=== PATIENT | female | born 1990 | race American Indian/Alaskan Native ===

== ENCOUNTER 2018-09-01 12:57 | Outpatient (CLI) | payer MEDICAID ==
[2018-09-01] MEDS ORDERED: LACTATED RINGERS 500 ML IV ONE (15:02)
[2018-09-01 15:26] VITALS: BP 121/72
[2018-09-01] MEDS ORDERED: LACTATED RINGERS 1,000 ML IV SCH (16:00)
[2018-09-01 16:01] LABS: Bilirubin,Urine NEG (Negative); Blood,Urine NEG (Negative); Color,Urine Yellow (Yellow); Mucus,Urine 1+ /HPF; Protein,Urine <15 mg/dL mg/dL (Negative)
[2018-09-01] MEDS ORDERED: BRETHINE SUB-Q ONE (17:21)
== END 2018-09-01 19:01 | disposition home or self-care (01) ==
LOC: TRG 12:57
PROVIDERS: ATTEND Obstetrics & Gynecology
DX: O47.03 False labor before 37 completed weeks of gestation, third trimester (principal); Z3A.35 35 weeks gestation of pregnancy
CPT/HCPCS: 59025; 81001; 96360; 96372; J3105; J7120

== ENCOUNTER 2018-09-22 10:44 | Outpatient (CLI) | payer MEDICAID ==
[2018-09-22 11:49] LABS: Color,Urine Yellow (Yellow)
[2018-09-22 11:50] LABS: Bilirubin,Urine NEG (Negative); Blood,Urine SM (Negative); Mucus,Urine FEW /HPF; Protein,Urine <15 mg/dL mg/dL (Negative); Urobilinogen,Urine < 2.0 mg/dL (<2.0)
[2018-09-22 11:51] LABS: Hematocrit 34.8 % (30.3-42.9); Hemoglobin 11.5 gm/dl (10.1-14.3); Mean Corpuscular HGB Conc 33 % (30-34); Mean Corpuscular Volume 85 fl (79-97); Platelet Count 250 K/mm3 (140-440)
[2018-09-22 12:19] LABS: Alanine Aminotransferase 7 units/L (7-56); Uric Acid 4.8 mg/dL (3.5-7.6)
[2018-09-22 12:22] VITALS: BP 109/67
[2018-09-22] MEDS ORDERED: TYLENOL PO ONE (13:06)
== END 2018-09-22 12:39 | disposition home or self-care (01) ==
LOC: TRG 10:44
PROVIDERS: ATTEND Obstetrics & Gynecology
DX: O47.1 False labor at or after 37 completed weeks of gestation (principal); Z3A.38 38 weeks gestation of pregnancy
CPT/HCPCS: 36415; 59025; 81001; 82565; 83615; 84450; 84460; 84550; 85027

== ENCOUNTER 2018-10-04 11:32 | Outpatient (CLI) | payer MEDICAID ==
[2018-10-04 13:24] LABS: Hematocrit 33.1 % (30.3-42.9); Hemoglobin 10.8 gm/dl (10.1-14.3); Mean Corpuscular HGB Conc 33 % (30-34); Mean Corpuscular Volume 84 fl (79-97); Platelet Count 287 K/mm3 (140-440); Red Blood Count 3.95 M/mm3 (3.65-5.03); Red Cell Distribution Width 15.2 % (13.2-15.2)
[2018-10-04 13:26] LABS: Bacteria,Urine 2+ /HPF (Negative); Bilirubin,Urine NEG (Negative); Blood,Urine LG (Negative); Color,Urine Yellow (Yellow); Mucus,Urine FEW /HPF; Protein,Urine <15 mg/dL mg/dL (Negative); Urobilinogen,Urine < 2.0 mg/dL (<2.0)
[2018-10-04 13:46] LABS: Alanine Aminotransferase 7 units/L (7-56); Uric Acid 4.7 mg/dL (3.5-7.6)
[2018-10-04 14:07] VITALS: BP 121/76
== END 2018-10-04 14:16 | disposition home or self-care (01) ==
LOC: TRG 11:32
PROVIDERS: ATTEND Obstetrics & Gynecology
DX: O47.1 False labor at or after 37 completed weeks of gestation (principal); Z3A.39 39 weeks gestation of pregnancy
CPT/HCPCS: 36415; 59025; 81001; 82565; 83615; 84450; 84460; 84550; 85027

== ENCOUNTER 2018-10-06 13:49 | Inpatient (IN) | payer MEDICAID ==
[2018-10-06] MEDS ORDERED: SUBLIMAZE IV PRN (15:34)
[2018-10-06] MEDS ORDERED: ZOFRAN IV PRN (15:34)
[2018-10-06] MEDS ORDERED: BRETHINE IVP PRN (15:34)
[2018-10-06] MEDS ORDERED: MINERAL OIL PO PRN (15:34)
[2018-10-06] MEDS ORDERED: PHENERGAN PO PRN (15:34)
[2018-10-06] MEDS ORDERED: BRETHINE SUB-Q PRN (15:34)
[2018-10-06] MEDS ORDERED: NARCAN 0.4 MG/1 ML IV PRN (15:34)
[2018-10-06] MEDS ORDERED: PITOCin/NS 20 UNIT/1000ML DRIP 20 UNITS/1,000 ML BAG IV SCH (16:00)
[2018-10-06] MEDS ORDERED: LACTATED RINGERS 1,000 ML IV SCH (16:00)
[2018-10-06] MEDS ORDERED: PITOCin/NS 30 UNIT/500ML 30 UNITS/500 ML BAG IV SCH (16:30)
[2018-10-06] MEDS ORDERED: XYLOCAINE 2% INFILTRATI ONE (16:34)
[2018-10-06 16:44] LABS: Hematocrit 35.2 % (30.3-42.9); Hemoglobin 11.5 gm/dl (10.1-14.3); Mean Corpuscular HGB Conc 33 % (30-34); Mean Corpuscular Volume 84 fl (79-97); Platelet Count 290 K/mm3 (140-440)
[2018-10-06] MEDS: PITOCin/NS 30 UNIT/500ML 30 UNITS/500 ML BAG IV SCH (16:44)
[2018-10-06 18:36] LABS: Alanine Aminotransferase 7 units/L (7-56); Albumin 3.6 g/dL (3.9-5); BUN/Creatinine Ratio 18; Blood Urea Nitrogen 7 mg/dL (7-17); Calcium 8.7 mg/dL (8.4-10.2); Hemolysis Index 4
[2018-10-06 19:03] LABS: Bacteria,Urine 2+ /HPF (Negative); Bilirubin,Urine NEG (Negative); Blood,Urine LG (Negative); Color,Urine Amber (Yellow); Mucus,Urine FEW /HPF; Urobilinogen,Urine < 2.0 mg/dL (<2.0)
[2018-10-06 19:05] LABS: WBC,Urine > 182.0 /HPF (0.0-6.0)
[2018-10-06] MEDS: STADOL IV PRN ×2 (19:29→22:00)
--- NOTE | 2018-10-06 21:02 | History and Physical Report ---
History of Present Illness Date of examination: 10/06/18 Date of admission: 10/06/18 14:29 Chief complaint: 28 year old at 40 weeks, 1 day gestation with PIH. History of present illness: 28 year old at 40 weeks, 1 day gestation sent from office for augmentation of labor due to PIH. Patient denies headache, visual disturbance, nausea or vomiting, abdominal or epigastric pain. She reports swelling. Patient denies vaginal bleeding. She denies leaking of fluid. Patient reports active movement. Patient has received care at [facility]. LMP 12/29/2017. EDC 10/05/2018. EGA 40 weeks, 1 day gestation. significant for the following: UTI (treated and cured); HSV 2 positive (suppressed with Valtrex; patient denies lesions or prodromal symptoms); anemia (supplemented with iron); palpitations during (cardiology appointment made but pt. did not keep appointment); elevated blood pressures past week of (preeclamptic labs negative). labs are as follows: B+, antibody screen negative, rubella immune, pap negative, RPR nonreactive, hepatitis B surface antigen negative, HIV negative, varicella immune, hemoglobin electrophoresis AA, GC negative, CT negative, diabetes screen 84, GBS negative. Past History Past Medical History: other (palpitations during (pt. 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 denies: abnormal PAP smear, chlamydia, gonorrhea, hepatitis B, hepatitis C, HIV, syphilis, trichomonas Family/Genetic History: none Social history: lives with family, full code. denies: smoking, alcohol abuse, prescription drug abuse, IV drug use - Obstetrical History Expected Date of Delivery: 10/05/18 Actual Gestation: 40 Week(s) 1 Day(s) : 1 Para: 0 Hx # Term Pregnancies: 1 Number of Pregnancies: 0 Spontaneous Abortions: 0 Induced : 0 Number of Living Children: 0 Medications and Allergies Allergies Allergy/AdvReac Type Severity Reaction Status Date / Time No Known Allergies Allergy Verified 09/22/18 10:47 Home Medications Medication Instructions Recorded Confirmed Last Taken Type valACYclovir [Valtrex] 10/06/18 10/05/18 History valACYclovir [Valtrex] 10/06/18 10/05/18 22:30 History 1 valACYclovir [Valtrex] 10/06/18 10/05/18 22:30 History 500mg Active Meds: Active Medications Butorphanol Tartrate (Stadol) 2 mg IV Q2H PRN PRN Reason: Pain , Severe (7-10) Last Admin: 10/06/18 19:29 Dose: 2 mg Documented by: Ephedrine Sulfate (Ephedrine Sulfate) 10 mg IV Q2M PRN PRN Reason: Hypotension Fentanyl (Sublimaze) 100 mcg IV Q2H PRN PRN Reason: Labor Pain Lactated Ringer's (Lactated Ringers) 1,000 mls @ 125 mls/hr IV DIRECT ABDOULAYE Last Admin: 10/06/18 16:44 Dose: 125 mls/hr Documented by: Oxytocin/Sodium Chloride (Pitocin/Ns 20 Unit/1000ml Drip) 20 units in 1,000 mls @ 125 mls/hr IV DIRECT ABDOULAYE Oxytocin/Sodium Chloride (Pitocin/Ns 30 Unit/500ml) 30 units in 500 mls @ 4 mls/hr IV TITR ABDOULAYE; Protocol Last Titration: 10/06/18 19:54 Dose: 0 milliunits/min, 0 mls/hr Documented by: Oxytocin/Sodium Chloride (Pitocin/Ns 30 Unit/500ml) 30 units in 500 mls @ 4 mls/hr IV TITR ABDOULAYE; Protocol Ampicillin Sodium (Polycillin/Ns 2 Gm/100 Ml) 2 gm in 100 mls @ 100 mls/hr IV Q6H ABDOULAYE; Protocol Gentamicin Sulfate 121.1085 mg (/ Sodium Chloride) 103.0277 mls @ 200 mls/hr IV Q8HR ABDOULAYE; Protocol Mineral Oil (Mineral Oil) 30 ml PO QHS PRN PRN Reason: Constipation Naloxone HCl (Narcan 0.4 Mg/1 Ml) 0.1 mg IV Q2MIN PRN PRN Reason: Res Rate </= 8 or 02 SAT < 92% Ondansetron HCl (Zofran) 4 mg IV Q8H PRN PRN Reason: Nausea And Vomiting Promethazine HCl (Phenergan) 25 mg PO Q6H PRN PRN Reason: Nausea And Vomiting Terbutaline Sulfate (Brethine) 0.25 mg SUB-Q ONCE PRN PRN Reason: Hyperstimulation/Hypertonicity Terbutaline Sulfate (Brethine) 0.25 mg IVP ONCE PRN PRN Reason: Hyperstimulation/Hypertonicity Valacyclovir HCl (Valtrex) 500 mg PO BID ABDOULAYE Review of Systems All systems: negative (contractions) - Vital Signs Vital signs: Vital Signs Temp Resp 97.8 F 20 10/06/18 15:00 10/06/18 15:00 Temp Pulse Resp BP Pulse Ox 98.9 F 96 H 18 129/77 99 10/06/18 19:21 10/06/18 20:46 10/06/18 18:00 10/06/18 20:46 10/06/18 17:04 - Physical Exam Abdomen: Positive: normal appearance, soft. Negative: distention, tenderness, guarding, rigidity Genitourinary (Female): Positive: normal external genitalia, normal perenium. Negative: perineal/vulvar lesions (no lesions seen on careful exam with bright light upon admission) Vagina: Positive: normal moisture Uterus: Positive: enlarged (size=dates) Anus/Rectum: Positive: normal perianal skin Extremities: Positive: normal, edema (mild edema hands and feet bilaterally). Negative: tenderness - Obstetrical FHR: category 1 Uterine Contraction Monitor Mode: External Cervical Dilatation: 5 Cervical Effacement Percentage: 75 station: -2 Uterine Contraction Pattern: Regular Uterine Contraction Intensity: Moderate Results Result Diagrams: 10/06/18 16:05 10/06/18 16:05 Abnormal lab results 10/06/18 10/06/18 10/06/18 Range/Units 16:05 16:05 18:26 WBC 15.3 H (4.5-11.0) K/mm3 Sodium 135 L (137-145) mmol/L Carbon Dioxide 18 L (22-30) mmol/L Creatinine 0.4 L (0.7-1.2) mg/dL Alkaline Phosphatase 145 H (35-129) units/L Albumin 3.6 L (3.9-5) g/dL Urine WBC (Auto) > 182.0 H (0.0-6.0) /HPF U Epithel Cells (Auto) 17.0 H (0-13.0) /HPF All other labs normal. Assessment and Plan A: at 40 weeks, 1 day gestation. PIH. GBS negative. P: Admit. Continuous EFM. Pitocin augmentation of labor. Discussed with patient risks and benefits of Pitocin augmentation of labor. Patient consented to Pitocin augmentation of labor. IV antibiotics.
[2018-10-06] MEDS: AMPICILLIN/NS 2 GM/100 ML 2 GM/100 ML BAG IV SCH (21:30)
[2018-10-06] MEDS ORDERED: GENTAMICIN IV SCH (22:00)
[2018-10-06] MEDS ORDERED: NACL 0.9% IV SCH (22:00)
[2018-10-06] MEDS: GENTAMICIN/NS 100 MG/100 ML 100 MG/100 ML BAG IV SCH (22:01)
[2018-10-06] MEDS: VALTREX PO SCH (22:01)
[2018-10-07] MEDS: STADOL IV PRN (03:30)
[2018-10-07] MEDS: AMPICILLIN/NS 2 GM/100 ML 2 GM/100 ML BAG IV SCH ×2 (04:09→12:30)
[2018-10-07] MEDS ORDERED: NARCAN 2 MG/2 ML IV PRN (05:24)
--- NOTE | 2018-10-07 05:25 | Anesthesia Consultation ---
Anesthesia Consult and Med Hx - Airway Anesthetic Teeth Evaluation: Good ROM Head & Neck: Adequate Mental/Hyoid Distance: Adequate Mallampati Class: Class I Intubation Access Assessment: Good - Pulmonary Exam CTA: Yes - Cardiac Exam Cardiac Exam: RRR - Pre-Operative Health Status ASA Pre-Surgery Classification: ASA2 Proposed Anesthetic Plan: Epidural - Pulmonary Hx Asthma: No COPD: No Hx Pneumonia: No - Cardiovascular System Hx Hypertension: Yes - Central Nervous System Hx Seizures: No Hx Psychiatric Problems: No - Endocrine Hx Renal Disease: No Hx End Stage Renal Disease: No Hx Hypothyroidism: No Hx Hyperthyroidism: No - Hematic Hx Anemia: Yes (stopped taking iron about 1 month ago) Hx Sickle Cell Disease: No - Other Systems Hx Alcohol Use: No
--- NOTE | 2018-10-07 05:26 | Anesthesia Day of Surgery ---
Anesthesia Day of Surgery - Day of Surgery Patient is NPO: Yes Beta Blockers: No Cardiac Clearance: No Pulmonary Clearance: No Dvaid's Test: N/A
[2018-10-07] MEDS ORDERED: LIDOCAINE 1.5%/EPI 1:200,000 INFILTRATI ONE (05:33)
[2018-10-07] MEDS ORDERED: MARCAINE 0.25% INFILTRATI ONE (05:33)
[2018-10-07] MEDS ORDERED: fentaNYL-BUPIV 2 MCG/ML-0.125% 200 MCG/100 ML BAG EPIDURAL SCH (06:00)
[2018-10-07] MEDS: GENTAMICIN/NS 100 MG/100 ML 100 MG/100 ML BAG IV SCH (06:05)
--- NOTE | 2018-10-07 10:06 | Event Note ---
Date: 10/07/18 SVE /-3. Patient positioned in squatting position. Pitocin restarted. Patient is comfortable. Category 1 heart rate tracing.
[2018-10-07] MEDS: VALTREX PO SCH (11:25)
[2018-10-07] MEDS: PITOCin/NS 30 UNIT/500ML 30 UNITS/500 ML BAG IV SCH (12:17)
--- NOTE | 2018-10-07 13:05 | Event Note ---
Date: 10/07/18 Category 1 heart rate tracing. BPs mildly elevated. Minimal cervical change. Patient is receiving antibiotics. Consulted with Dr. Weaver re: patient: lack of cervical change, ROM, antibiotics, and increasing BP. Dr. Weaver states she will examine patient and discuss mode of delivery with patient.
--- NOTE | 2018-10-07 13:27 | Progress Note ---
Assessment and Plan - Patient Problems (1) 40 weeks gestation of Current Visit: Yes Status: Acute (2) Active labor Current Visit: Yes Status: Acute (3) Failure to progress in labor Current Visit: Yes Status: Acute Plan to address problem: I discussed the above findings with the patient. I told her that she needs to be delivered via C/section. Risks and benefits of the procedure were discussed in detail with her such as infection, hemorrhage requiring blood transfusion, injury to the bowel, bladder and blood vessels. She expressed understanding, her questions were answered, she gave her informed consent. Anesthesia has been notified. Keep NPO. Continue monitoring. Subjective - Subjective Date of service: 10/07/18 Principal diagnosis: SIUP at 40 weeks and 1 day in active labor, failure to dilate and descend. Interval history: Patient is a 28 year old , at 40 weeks and 1 day gestation who was admitted last night at 3 cm for labor augmentation. She progressed to 5 cm during the night and 6 cm at 6 AM (as per division head's exam). She has been on pitocin. I was asked to evaluate the patient for failure to dilate and descend. I found her lying in bed comfortably. She has an epidural in place. Her contractions have been Q3-4 minutes. Cervix: 6cm/90%/-3. tracing is CAT1. Objective - Vital Signs Vital Signs: Vital Signs - 12hr 10/07/18 10/07/18 10/07/18 01:27 01:32 01:37 Temperature Pulse Rate 117 H 116 H 109 H Blood Pressure O2 Sat by Pulse 96 97 96 Oximetry 10/07/18 10/07/18 10/07/18 01:42 01:47 01:52 Temperature Pulse Rate 107 H 117 H 107 H Blood Pressure 121/63 O2 Sat by Pulse 96 96 96 Oximetry 10/07/18 10/07/18 10/07/18 01:53 01:57 02:02 Temperature Pulse Rate 120 H 121 H 116 H Blood Pressure O2 Sat by Pulse 94 95 96 Oximetry 10/07/18 10/07/18 10/07/18 02:07 02:12 02:16 Temperature Pulse Rate 110 H 122 H 111 H Blood Pressure 110/65 O2 Sat by Pulse 97 96 Oximetry 10/07/18 10/07/18 10/07/18 02:17 02:22 02:27 Temperature Pulse Rate 114 H 116 H 113 H Blood Pressure O2 Sat by Pulse 94 97 96 Oximetry 10/07/18 10/07/18 10/07/18 02:28 02:32 02:37 Temperature 98.3 F Pulse Rate 96 H 112 H Blood Pressure O2 Sat by Pulse 96 96 Oximetry 10/07/18 10/07/18 10/07/18 02:42 02:46 02:47 Temperature Pulse Rate 132 H 99 H 99 H Blood Pressure 123/65 O2 Sat by Pulse 98 98 Oximetry 10/07/18 10/07/18 10/07/18 02:52 02:57 03:02 Temperature Pulse Rate 106 H 103 H 92 H Blood Pressure O2 Sat by Pulse 97 97 97 Oximetry 10/07/18 10/07/18 10/07/18 03:07 03:12 03:17 Temperature Pulse Rate 107 H 120 H 110 H Blood Pressure 134/75 O2 Sat by Pulse 97 98 97 Oximetry 10/07/18 10/07/18 10/07/18 03:22 03:27 03:28 Temperature Pulse Rate 103 H 106 H 111 H Blood Pressure O2 Sat by Pulse 97 94 94 Oximetry 10/07/18 10/07/18 10/07/18 03:32 03:34 03:37 Temperature Pulse Rate 107 H 97 H 112 H Blood Pressure O2 Sat by Pulse 98 94 97 Oximetry 10/07/18 10/07/18 10/07/18 03:40 03:42 03:46 Temperature Pulse Rate 97 H 121 H 96 H Blood Pressure 121/77 O2 Sat by Pulse 93 99 94 Oximetry 10/07/18 10/07/18 10/07/18 03:47 03:52 03:57 Temperature Pulse Rate 117 H 112 H 107 H Blood Pressure O2 Sat by Pulse 98 98 98 Oximetry 10/07/18 10/07/18 10/07/18 04:02 04:07 04:09 Temperature Pulse Rate 104 H 97 H 80 Blood Pressure O2 Sat by Pulse 99 99 93 Oximetry 10/07/18 10/07/18 10/07/18 04:12 04:17 04:22 Temperature Pulse Rate 96 H 91 H 87 Blood Pressure 130/84 O2 Sat by Pulse 99 94 98 Oximetry 10/07/18 10/07/18 10/07/18 04:27 04:32 04:37 Temperature Pulse Rate 91 H 99 H 111 H Blood Pressure O2 Sat by Pulse 97 99 99 Oximetry 10/07/18 10/07/18 10/07/18 04:42 04:47 04:52 Temperature Pulse Rate 92 H 102 H 88 Blood Pressure 137/75 O2 Sat by Pulse 97 96 97 Oximetry 10/07/18 10/07/18 10/07/18 04:57 05:02 05:07 Temperature Pulse Rate 101 H 93 H 96 H Blood Pressure O2 Sat by Pulse 97 97 97 Oximetry 10/07/18 10/07/18 10/07/18 05:12 05:16 05:17 Temperature Pulse Rate 89 107 H 117 H Blood Pressure 162/89 O2 Sat by Pulse 97 99 Oximetry 10/07/18 10/07/18 10/07/18 05:22 05:27 05:31 Temperature Pulse Rate 87 86 118 H Blood Pressure O2 Sat by Pulse 98 97 94 Oximetry 10/07/18 10/07/18 10/07/18 05:32 05:34 05:37 Temperature Pulse Rate 141 H 117 H 107 H Blood Pressure 140/82 O2 Sat by Pulse 97 98 Oximetry 10/07/18 10/07/18 10/07/18 05:42 05:44 05:47 Temperature Pulse Rate 99 H 102 H 91 H Blood Pressure 133/79 128/81 O2 Sat by Pulse 99 99 Oximetry 10/07/18 10/07/18 10/07/18 05:52 05:57 06:13 Temperature Pulse Rate 104 H 117 H 105 H Blood Pressure 96/51 O2 Sat by Pulse 99 99 Oximetry 10/07/18 10/07/18 10/07/18 06:27 06:38 06:43 Temperature Pulse Rate 89 100 H 88 Blood Pressure 98/55 106/58 123/74 O2 Sat by Pulse Oximetry 10/07/18 10/07/18 10/07/18 06:57 07:14 07:28 Temperature Pulse Rate 91 H 84 96 H Blood Pressure 112/60 110/56 127/59 O2 Sat by Pulse Oximetry 10/07/18 10/07/18 10/07/18 07:43 07:58 08:12 Temperature Pulse Rate 87 94 H 93 H Blood Pressure 115/68 140/82 142/86 O2 Sat by Pulse Oximetry 10/07/18 10/07/18 10/07/18 08:28 08:43 08:58 Temperature Pulse Rate 91 H 96 H 86 Blood Pressure 138/70 149/83 140/73 O2 Sat by Pulse Oximetry 10/07/18 10/07/18 10/07/18 09:13 09:28 09:42 Temperature Pulse Rate 88 92 H 85 Blood Pressure 132/76 143/84 128/70 O2 Sat by Pulse Oximetry 10/07/18 10/07/18 10/07/18 09:58 10:13 10:28 Temperature Pulse Rate 98 H 95 H 86 Blood Pressure 139/88 131/82 125/80 O2 Sat by Pulse Oximetry 10/07/18 10/07/18 10/07/18 10:44 10:58 11:13 Temperature Pulse Rate 83 89 103 H Blood Pressure 130/79 128/81 128/83 O2 Sat by Pulse Oximetry 10/07/18 10/07/18 10/07/18 11:27 11:44 11:58 Temperature Pulse Rate 102 H 101 H 80 Blood Pressure 127/81 120/72 117/76 O2 Sat by Pulse Oximetry 10/07/18 10/07/18 10/07/18 12:12 12:29 12:42 Temperature Pulse Rate 82 93 H 92 H Blood Pressure 123/78 134/86 140/94 O2 Sat by Pulse Oximetry 10/07/18 10/07/18 12:57 13:12 Temperature Pulse Rate 81 78 Blood Pressure 129/85 125/78 O2 Sat by Pulse Oximetry - Exam Cardiovascular: Normal S1, Normal S2 Lungs: Clear to auscultation Vulva: both: normal FHR: category 1 Uterine Contraction Monitor Mode: External Cervical Dilatation: 6 Cervical Effacement Percentage: 90 station: -3 Uterine Contraction Pattern: Irregular Uterine Contraction Intensity: Moderate Deep Tendon Reflex Grade: Normal +2 - Labs Labs: Abnormal Labs 10/06/18 10/06/18 10/06/18 16:05 16:05 18:26 WBC 15.3 H Sodium 135 L Carbon Dioxide 18 L Creatinine 0.4 L Alkaline Phosphatase 145 H Albumin 3.6 L Urine WBC (Auto) > 182.0 H U Epithel Cells (Auto) 17.0 H Laboratory Results - last 24 hr 10/06/18 10/06/18 10/06/18 16:05 16:05 16:05 WBC 15.3 H RBC 4.20 Hgb 11.5 Hct 35.2 MCV 84 MCH 28 MCHC 33 RDW 15.0 Plt Count 290 Sodium Potassium Chloride Carbon Dioxide Anion Gap BUN Creatinine Estimated GFR BUN/Creatinine Ratio Glucose Uric Acid Calcium Total Bilirubin AST ALT Alkaline Phosphatase Lactate Dehydrogenase Total Protein Albumin Albumin/Globulin Ratio Urine Color Urine Turbidity Urine pH Ur Specific [place] Urine Protein Urine Glucose (UA) Urine Ketones Urine Blood Urine Nitrite Urine Bilirubin Urine Urobilinogen Ur Leukocyte Esterase Urine WBC (Auto) Urine RBC (Auto) U Epithel Cells (Auto) Urine Bacteria (Auto) Urine WBC Clumps Urine Mucus Urine Yeast (Budding) RPR Nonreactive Blood Type B POSITIVE Antibody Screen Negative 10/06/18 10/06/18 16:05 18:26 WBC RBC Hgb Hct MCV MCH MCHC RDW Plt Count Sodium 135 L Potassium 4.1 Chloride 100.3 Carbon Dioxide 18 L Anion Gap 21 BUN 7 Creatinine 0.4 L Estimated GFR > 60 BUN/Creatinine Ratio 18 Glucose 67 Uric Acid 5.0 Calcium 8.7 Total Bilirubin 0.30 AST 11 ALT 7 Alkaline Phosphatase 145 H Lactate Dehydrogenase 169 Total Protein 6.4 Albumin 3.6 L Albumin/Globulin Ratio 1.3 Urine Color Pat Urine Turbidity Cloudy Urine pH 6.0 Ur Specific [place] 1.020 Urine Protein 30 mg/dl Urine Glucose (UA) Neg Urine Ketones 20 Urine Blood Lg Urine Nitrite Neg Urine Bilirubin Neg Urine Urobilinogen < 2.0 Ur Leukocyte Esterase Lg Urine WBC (Auto) > 182.0 H Urine RBC (Auto) 36.0 U Epithel Cells (Auto) 17.0 H Urine Bacteria (Auto) 2+ Urine WBC Clumps 3+ Urine Mucus Few Urine Yeast (Budding) 2+ RPR Blood Type Antibody Screen - Results US- obstetric: report reviewed
[2018-10-07] MEDS ORDERED: REGLAN IV SCH (15:21)
[2018-10-07] MEDS ORDERED: BICITRA PO SCH (15:21)
[2018-10-07] MEDS ORDERED: PEPCID IV SCH (15:21)
[2018-10-07] MEDS ORDERED: XYLOCAINE 2%/ EPI 1:200,000 INFILTRATI ONE (15:38)
[2018-10-07] MEDS ORDERED: LACTATED RINGERS 1,000 ML IV SCH (16:00)
[2018-10-07] MEDS ORDERED: ANCEF/STERILE WATER 2 GM/20 ML 2 GM/20 ML SYRINGE IV NR (16:00)
[2018-10-07] MEDS ORDERED: PITOCin/NS 20 UNIT/1000ML DRIP 20 UNITS/1,000 ML BAG IV SCH ×2 (16:00→20:00)
[2018-10-07] MEDS ORDERED: ZOFRAN ONE (18:22)
[2018-10-07] MEDS ORDERED: ASTRAMORPH PF 10MG/10ML ONE (18:47)
[2018-10-07] MEDS ORDERED: VERSED ONE (18:47)
[2018-10-07] MEDS ORDERED: TORADOL ONE (18:54)
[2018-10-07] MEDS ORDERED: DILAUDID ONE ×2 (18:57→19:13)
[2018-10-07] MEDS ORDERED: LACTATED RINGERS 1,000 ML ONE (18:58)
[2018-10-07] MEDS ORDERED: ANUCORT-HC PR PRN (19:30)
[2018-10-07] MEDS ORDERED: TYLENOL PO PRN (19:30)
[2018-10-07] MEDS ORDERED: SENOKOT PO PRN (19:30)
[2018-10-07] MEDS ORDERED: PERCOCET 5/325 PO PRN (19:30)
[2018-10-07] MEDS ORDERED: MORPHINE IV PRN ×2 (19:30)
[2018-10-07] MEDS ORDERED: ZOFRAN IV PRN (19:30)
[2018-10-07] MEDS ORDERED: LANSINOH TP PRN (19:30)
[2018-10-07] MEDS ORDERED: MYLICON PO PRN (19:30)
[2018-10-07] MEDS ORDERED: TUCKS PAD TP PRN (19:30)
[2018-10-07] MEDS ORDERED: MILK OF MAGNESIA PO PRN (19:30)
[2018-10-07] MEDS ORDERED: TORADOL IV PRN ×2 (19:30)
[2018-10-07] MEDS ORDERED: NARCAN 0.4 MG/1 ML IV PRN (19:30)
--- NOTE | 2018-10-07 19:30 | Operative Report ---
Operative Report Operative Report: Preoperative diagnosis 1. SIUP at 40 weeks and 1 day gestation in active labor. 2. Failure to dilate and descend. Postoperative diagnosis: Same. Procedure: Primary low-transverse section. Surgeon: Dr. Weaver Parks Recreation Director: none Anesthesia: epidural. IVF: RL 2 liters EBL: 650 cc Urine: 500 cc clear Complications: none. Intraoperative findings: 1. A female infant found in an MARLEE position, delivered at 6:40 PM, Apgars 8 at 1 minute and 9 at 5 minutes, weight as per test equipment mechanic. 2. Normal fallopian tubes and ovaries bilaterally. Procedure details: Risks, benefits, and alternatives of the procedure were discussed in detail with the patient which included but not limited to the risk of infection, hemorrhage requiring blood transfusion, injury to the bowel or bladder and blood vessels. The patient expressed understanding, her questions were answered, and she gave informed consent. The patient was taken to the operating room with an IV fluid infusing Ringers lactate. In the operating room, she was placed in a dorsal supine position with a leftward tilt. She was loaded with epidural anesthesia. Ortiz catheter in Venodyne boots were placed. The abdomen was washed and she was prepared and draped in usual sterile fashion. After confirming adequate epidural anesthesia, the Pfannenstiel skin incision was made in the lower abdomen about 2 cm above the pubic symphysis using the scalpel. This incision was carried down to the underlying fascia using the Bovie. The fascia was opened bilaterally in a curvilinear fashion using the Bovie. 2 straight Kocker clamps were used to grasp the upper edge of the fascia from which the underlying rectus abdominis muscles was dissected off using the Bovie. A similar procedure was done with the lower edge of the fascia to dissect the underlying rectus abdominis muscle. The muscle was bluntly from the midline by pulling. The parietal peritoneum was grasped with 2 hemostat clamps and entered sharply using Metzenbaum scissors. A quick survey of the anatomy revealed a gravid uterus, normal fallopian tubes and ovaries bilaterally. A bladder flap was created. Patrice'O retractor was placed in the incision for proper visualization. A low transverse incision was made in the lower uterine segment using the scalpel and extended bilaterally in a curvilinear fashion using bandage scissors. There was scant amount of clear amniotic fluid as the membranes have been ruptured during the labor. The infant was found in an MARLEE position, the head was delivered atraumatically followed by the delivery of the shoulders and the rest of the body at 7:34 AM. The cord was clamped 2 and cut and the was handed off to the waiting test equipment mechanic. The infant was a female, Apgars were 9 at 1 minute and 9 at 5 minutes, weight as per test equipment mechanic. Cord blood was collected. The placenta was delivered manually and it was complete with a three-vessel cord. The uterine cavity was cleaned of clots and debris using dry lap sponges. The uterine incision was repaired in a running locked fashion using 0 Vicryl sutures. A second layer of imbrication was placed. The gutters were cleaned of clots and debris using dry lap sponges. After confirming adequate hemostasis, the instruments were removed from the abdominal cavity. The rectus muscle was reapproximated in an interrupted fashion using 0 Vicryl sutures. The fascia was closed in a running fashion using 0 Vicryl sutures. The skin was closed in a subcutaneous fashion using 4 Vicryl on a Alessio needle. Sterile dressing was placed. The counts of laps, needles, sponges, and instruments were correct 2. The patient tolerated the procedure well, she was taken to the recovery room in a stable condition.
[2018-10-07] MEDS ORDERED: SODIUM CHLORIDE FLUSH SYRINGE 10 ML IV NR (20:00)
[2018-10-08] MEDS ORDERED: D5LR 1,000 ML IV SCH (01:00)
[2018-10-08] MEDS: VALTREX PO SCH ×2 (04:37→21:53)
[2018-10-08 08:14] LABS: Hematocrit 28.5 % (30.3-42.9); Hemoglobin 9.2 gm/dl (10.1-14.3)
[2018-10-08] MEDS: GENTAMICIN/NS 100 MG/100 ML 100 MG/100 ML BAG IV SCH ×2 (10:24→18:08)
[2018-10-08] MEDS: PRENATAL VITAMIN PO SCH (10:24)
[2018-10-08] MEDS: FEOSOL PO SCH (10:24)
--- NOTE | 2018-10-08 12:40 | Progress Note ---
Assessment and Plan A: day 1 S/P primary low transverse section. Anemia. P: Supplement with iron. Encouraged ambulation. Subjective - Subjective Date of service: 10/08/18 Principal diagnosis: /postop day 1 S/P primary LTCS Interval history: /postop day 1 S/P primary LTCS. Doing well. Patient reports small amount of lochia. Ortiz catheter has been removed and she is voiding without difficulty. Ambulating well. Tolerating liquid diet without nausea or vomiting. Patient has not passed gas yet. Patient reports: appetite normal, voiding normally, pain well controlled, ambu lating normally, no dizzy ambulation, no flatus, no bowel movement, no nauseated : doing well Objective - Vital Signs Latest vital signs: Vital Signs Temp Pulse Resp BP BP Pulse Ox 10/08/18 08:00 100 H 10/08/18 07:39 99.1 F 116 H 20 136/80 94 10/08/18 04:43 20 10/08/18 04:00 98.4 F 63 18 101/78 10/08/18 00:30 98.7 F 74 18 130/74 10/07/18 21:54 20 10/07/18 21:15 99.2 F 90 18 150/83 10/07/18 20:40 99.2 F 94 H 16 141/782 98 10/07/18 20:30 98 H 14 140/80 98 10/07/18 20:15 103 H 12 140/88 98 10/07/18 20:00 102 H 18 137/86 98 10/07/18 19:55 94 H 16 133/80 98 10/07/18 19:50 94 H 16 137/81 98 10/07/18 19:45 97 H 17 128/79 98 10/07/18 19:42 99.4 F 104 H 20 139/80 99 10/07/18 17:28 105 H 138/83 10/07/18 17:12 107 H 131/78 10/07/18 16:59 86 121/68 10/07/18 16:43 103 H 129/81 10/07/18 16:29 88 121/63 10/07/18 16:15 111 H 168/71 10/07/18 15:59 126 H 126/77 10/07/18 15:29 103 H 122/95 10/07/18 15:14 98 H 133/83 10/07/18 14:57 93 H 130/79 10/07/18 14:42 83 127/78 10/07/18 14:27 88 126/75 10/07/18 14:12 109 H 130/82 10/07/18 13:57 84 125/78 10/07/18 13:42 90 122/75 10/07/18 13:28 100 H 121/73 10/07/18 13:12 78 125/78 10/07/18 12:57 81 129/85 10/07/18 12:42 92 H 140/94 Intake and Output 10/07/18 10/08/18 10/08/18 23:59 07:59 15:59 Intake Total 250 360 Output Total 860 800 100 Balance -610 -800 260 Intake: IV 250 Oral 360 Output: Urine 860 800 100 Indwelling Catheter 800 100 Uretheral (Ortiz) 430 Other: Total, Intake Amount 360 Total, Output Amount 800 100 - Exam Cardiovascular: Present: Regular rate, Normal S1, Normal S2 Abdomen: Present: normal appearance, soft, normal bowel sounds. Absent: distention, tenderness, guarding, rigidity Uterus: Present: normal, firm, fundal height below umbilicus. Absent: bogginess, tenderness Extremities: Present: normal, edema (mild edema). Absent: tenderness Incision: Present: normal, dry, intact, dressed - Labs Labs: Abnormal lab results 10/08/18 Range/Units 07:19 Hgb 9.2 L (10.1-14.3) gm/dl Hct 28.5 L D (30.3-42.9) %
[2018-10-08] MEDS: IBUPROFEN PO PRN ×2 (13:17→22:02)
[2018-10-08] MEDS: AMPICILLIN/NS 2 GM/100 ML 2 GM/100 ML BAG IV SCH (18:44)
[2018-10-09] MEDS: PRENATAL VITAMIN PO SCH (09:50)
[2018-10-09] MEDS: FEOSOL PO SCH (09:50)
[2018-10-09] MEDS: VALTREX PO SCH (09:51)
[2018-10-09] MEDS: IBUPROFEN PO PRN (11:54)
--- NOTE | 2018-10-09 13:11 | Progress Note ---
Assessment and Plan - Patient Problems (1) S/P primary low transverse Current Visit: Yes Status: Acute Plan to address problem: POD 2 - stable Continue routine postop orders' Discharge to home later today Follow up at [facility] in 1 week for incision check (2) Anemia in puerperium, baby delivered during current episode of care Current Visit: Yes Status: Acute Plan to address problem: Asymptomatic Continue iron therapy (3) Chlamydia infection Current Visit: Yes Status: Acute Plan to address problem: Diagnosed at [facility] Will treat with Azithromycin 1g PO x1 Subjective - Subjective Date of service: 10/09/18 Principal diagnosis: POD #2; s/p Primary LTCS Patient reports: appetite normal, voiding normally, pain well controlled, flatus, bowel movement, ambulating normally, no dizzy ambulation Eads: doing well, other (breast and bottle feeding) Objective - Vital Signs Latest vital signs: Vital Signs Temp Pulse Resp BP BP Pulse Ox 10/09/18 07:43 98.3 F 91 H 18 128/87 10/09/18 00:00 98.4 F 105 H 20 129/80 97 10/08/18 16:26 98.6 F 96 H 20 124/81 99 Intake and Output 10/08/18 10/09/18 10/09/18 23:59 07:59 15:59 Intake Total 360 240 Balance 360 240 Intake: Oral 360 240 Other: Total, Intake Amount 360 240 - Exam Cardiovascular: Present: Regular rate Lungs: Present: Clear to auscultation Abdomen: Present: normal appearance, soft Vulva: both: normal Uterus: Present: normal, firm, fundal height below umbilicus Extremities: Present: normal Incision: Present: normal, dry, intact, other (steri strips in place)
--- NOTE | 2018-10-09 13:13 | Discharge Summary ---
Providers - Providers Date of Admission: 10/06/18 14:29 Date of discharge: 10/09/18 Attending physician: ERINN RILEY MD Primary care physician: PTA Hospitalization Reason for admission: induction of labor, IUP at term Delivery: Procedure: primary low transverse Episiotomy: none Laceration: none Incision: normal, dry, intact, other (steri strips in place) Other procedures: none complications: none Discharge diagnosis: IUP at term delivered baby: female Hospital course: Uncomplicated Condition at discharge: Stable Disposition: MT-01 TO HOME OR SELFCARE - Discharge Diagnoses (1) S/P primary low transverse Status: Acute (2) Anemia in puerperium, baby delivered during current episode of care Status: Acute Comment: Asymtomatic Continue iron therapy (3) Chlamydia infection Status: Acute Comment: Treated with Azithromycin 1g PO x1 Plan - Discharge Medications Prescriptions: Ferrous Sulfate [Feosol 325 MG tab] 325 mg PO QDAY #30 tablet Ibuprofen [Motrin] 800 mg PO Q8HR PRN #30 tablet PRN Reason: Pain, Moderate (4-6) oxyCODONE /ACETAMINOPHEN [Percocet 5/325] 1 tab PO Q4HR #14 tab oxyCODONE /ACETAMINOPHEN [Percocet 5/325] 1 tab PO Q4HR #14 tab - Provider Discharge Summary Activity: routine, no sex for 6 weeks, no heavy lifting 4 weeks, no strenuous exercise Diet: routine Instructions: routine Additional instructions: [] Smoking cessation referral if applicable(refer to patient education folder for contact #) [] Refer to [facility] Booklet Call your doctor immediately for: * Fever > 100.5 * Heavy vaginal bleeding ( >1 pad per hour) * Severe persistent headache * Shortness of breath * Reddened, hot, painful area to leg or breast * Drainage or odor from incision. * Keep incision clean and dry at all times and follow doctor's instructions regarding bathing/showering - Follow up plan Follow up: PRIMARY CARE, [Primary Care Provider] - 7 Days (Follow up at [facility] in 1 week for incision check)
[2018-10-09] MEDS ORDERED: ZITHROMAX PO ONE (13:16)
[2018-10-09 17:42] VITALS: BP 139/96
== END 2018-10-09 18:30 | disposition home or self-care (01) | DRG 765 ==
LOC: TRG 13:49 → UNDOADMIN 13:57 → LD 13:57 → OB 10-07 21:11
PROVIDERS: ADMIT Obstetrics & Gynecology; ATTEND Obstetrics & Gynecology
PROC: 10D00Z1 Extraction of Products of Conception, Low, Open Approach (ICD-10-PCS; principal; 2018-10-07)
DX: O13.4 Gestational [pregnancy-induced] hypertension without significant proteinuria, complicating childbirth (principal); D62 Acute posthemorrhagic anemia; Z3A.40 40 weeks gestation of pregnancy; Z37.0 Single live birth; O32.4XX0 Maternal care for high head at term, not applicable or unspecified; O99.02 Anemia complicating childbirth; D64.9 Anemia, unspecified
CPT/HCPCS: 36415; 59025; 80053; 81001; 82565; 83615; 84450; 84460; 84550; 85014; 85018; 85027; 86592; 86850; 86900; 86901; 87086; G0378; J0290; J0595; J0690; J1170; J1580; J1885; J2250; J2270; J2274; J2405; J2590; J2765; J7120; J7121

== ENCOUNTER 2019-10-12 15:38 | Outpatient (CLI) | payer MEDICAID ==
[2019-10-12 19:33] VITALS: BP 117/71
== END 2019-10-12 18:35 | disposition home or self-care (01) ==
LOC: TRG 15:38
PROVIDERS: ATTEND Obstetrics & Gynecology
DX: O47.02 False labor before 37 completed weeks of gestation, second trimester (principal); Z3A.21 21 weeks gestation of pregnancy